=== PATIENT | female | born 1995 | race Caucasian/White ===

== ENCOUNTER 2017-07-11 19:35 | Emergency (ER) | payer SELFPAY ==
[2017-07-11] MEDS ORDERED: 0.9 % SODIUM CHLORIDE 1000ML 1,000 ML IV SCH (19:45)
--- NOTE | 2017-07-11 19:46 | Emergency Department Record ---
History of Present Illness - General Stated Complaint: OD Time Seen by Provider: 07/11/17 19:40 Source: Patient, EMS Mode of Arrival: EMS Limitations: No limitations - History of Present Illness Initial Comments: 21 yo female presents to ED following an overdose of heroin just prior to arrival. Patient was given Narcan 8 mg intranasally prior to arrival, denies complaints at this time. Patient denies pain or injury, and denies health problems at her baseline. Complaint: Accidental overdose Onset/Timin -: Minutes(s) - Peter Coma Scale Eye Response: (4) Open spontaneously Motor Response: (6) Obeys commands Verbal Response: (5) Oriented Peter Total: 15 - Detail How Overdose Was Discovered: Family/friend present at time Context: Accidental Overdose: Wanted to get high Context: Intentional Overdose: Drug/ETOH problems Treatments Prior to Arrival: Narcan - Related Data Home Medications Medication Instructions Recorded Confirmed Last Taken No Home Med [NO HOME MEDS] 07/11/17 07/11/17 Unknown Allergies Allergy/AdvReac Type Severity Reaction Status Date / Time sulfamethoxazole Allergy PT UNSURE Verified 07/11/17 19:48 [From Bactrim] OF REACTION trimethoprim [From Bactrim] Allergy PT UNSURE Verified 07/11/17 19:48 OF REACTION Review of Systems Constitutional: Denies: Chills, Fever, Malaise, Night sweats Eyes: Denies: Eye discharge, Eye pain ENT: Denies: Congestion, Ear pain, Epistaxis Respiratory: Denies: Cough, Dyspnea Cardiovascular: Denies: Chest pain, Dyspnea on exertion Endocrine: Denies: Fatigue, Heat or cold intolerance Gastrointestinal: Denies: Abdominal pain, Nausea, Vomiting Genitourinary: Denies: Incontinence, Retention Musculoskeletal: Denies: Arthralgia, Back pain, Gout, Joint swelling Skin: Denies: Bruising, Change in color Neurological: Denies: Abnormal gait, Confusion, Headache, Seizure Psychiatric: Denies: Anxiety Hematological/Lymphatic: Denies: Anemia, Blood Clots Physical Exam - General General Appearance: Alert, Oriented x3, Cooperative, No acute distress Limitations: No limitations - Head Head exam: Atraumatic, Normocephalic, Normal inspection Head exam detail: negative: Abrasion, Contusion, Kerr's sign, General tenderness, Hematoma, Laceration - Eye Eye exam: Normal appearance. negative: Conjunctival injection, Periorbital swelling, Periorbital tenderness, Scleral icterus - ENT Ear exam: negative: Auricular hematoma, Auricular trauma Nasal Exam: negative: Active bleeding, Discharge, Dried blood, Foreign body Mouth exam: negative: Drooling, Laceration, Tongue elevation - Neck Neck exam: Normal inspection. negative: Meningismus, Tenderness - Respiratory Respiratory exam: Normal lung sounds bilaterally. negative: Rales, Respiratory distress, Rhonchi, Stridor - Cardiovascular Cardiovascular Exam: Regular rate, Normal rhythm, Normal heart sounds - GI/Abdominal GI/Abdominal exam: Soft. negative: Rebound, Rigid, Tenderness - Rectal Rectal exam: Deferred - exam: Deferred - Extremities Extremities exam: Normal inspection. negative: Calf tenderness, Pedal edema, Tenderness - Back Back exam: Denies: CVA tenderness (R), CVA tenderness (L) - Neurological Neurological exam: Alert, Normal gait, Oriented X3 - Psychiatric Psychiatric exam: Normal affect, Normal mood - Skin Skin exam: Normal color. negative: Abrasion Type of lesion: negative: abrasion Course - Reevaluation(s) Reevaluation #1: 07/11/17 20:30 Laboratory studies reviewed, WBC 14.6, CO2 20.9, AG 16.1, and glucose is 285. Patient is resting comfortably at this time, will continue to observe for 3-4 hours following narcan administration. Reevaluation #2: 07/11/17 23:23 Patient ambulated to the bathroom with steady gait, no evidence for recurrence of respiratory depression on multiple examinations. Patient was counseled at length about the risks of heroin use and resulting from overdose. Patient appears stable for discharge at this time. Medical Decision Making - Lab Data Result diagrams: 07/11/17 19:23 07/11/17 19:23 Disposition Disposition: Discharge Clinical Impression: Opiate overdose Qualifiers: Encounter type: initial encounter Injury intent: accidental or unintentional Qualified Code(s): T40.601A - Poisoning by unspecified narcotics, accidental ( unintentional), initial encounter Disposition: Home, Self-Care Condition: (2) Stable Instructions: Narcotic Abuse (ED) Additional Instructions: Return to ED if your symptoms worsen or if you have any concerns. Follow-up with your family doctor in 3-5 days as directed. Please stop using heroin. Forms: Patient Portal Access Time of Disposition: 23:24 Quality - Quality Measures Quality Measures: N/A - Blood Pressure Screening Does Patient Have Any of the Following: No Blood Pressure Classification: Pre-Hypertensive BP Reading Systolic Measurement: 127 Diastolic Measurement: 78 Screening for High Blood Pressure: < Pre-Hypertensive BP, F/U Documented > [ G8950] Pre-Hypertensive Follow-up Interventions: Referral to alternative/primary care provider.
[2017-07-11 19:50] LABS: HEMATOCRIT 38.5 % (35.0-47.0); HEMOGLOBIN 12.7 gm/dl (11.6-16.0); MEAN CELL VOLUME 84.6 fl (81-97); MEAN CORPUSCULAR HEMOGLOBIN 27.9 pg (27-33); MEAN PLATELET VOLUME 9.7 fl (7.4-10.4); PLATELET COUNT 308 K/uL (130-400); RED BLOOD COUNT 4.55 M/uL (3.80-5.40); WHITE BLOOD COUNT W/O DIFF 14.6 K/uL (4.2-12.2)
[2017-07-11 20:01] LABS: ALB/GLOB RATIO 1.3 (1.1-1.8); ALBUMIN 4.1 gm/dL (3.5-5.0); ALKALINE PHOSPHATASE 101 U/L (38-126); ALT/SGPT 59 U/L (9-52); ANION GAP 16.1 (7-16); AST/SGOT 59 U/L (14-36); BILIRUBIN,TOTAL 0.56 mg/dL (0.2-1.3); BLOOD UREA NITROGEN 8 mg/dL (7-17); CARBON DIOXIDE 20.9 mmol/L (22-30); CREATININE 0.9 mg/dL (0.52-1.04); EST GLOMERULAR FILTRATION RATE > 60 ml/min; GLUCOSE,RANDOM 285 mg/dL (70-110); TOTAL PROTEIN 7.3 gm/dL (6.3-8.2)
[2017-07-11 20:57] LABS: AMPHETAMINE SCREEN URINE NOT DETECTED; BARBITURATE SCREEN URINE NOT DETECTED; BENZODIAZEPINE SCREEN URINE DETECTED; COCAINE SCREEN URINE NOT DETECTED; METHADONE SCREEN URINE NOT DETECTED; METHAMPHETAMINE SCREEN NOT DETECTED; OPIATE SCREEN URINE NOT DETECTED; OXYCODONE SCREEN URINE NOT DETECTED; PHENCYCLIDINE SCREEN URINE NOT DETECTED; PROPOXYPHENE SCREEN URINE NOT DETECTED; THC SCREEN URINE NOT DETECTED; TRICYCLIC ANTIDEPRESSANT SCRN NOT DETECTED
== END 2017-07-11 23:48 | disposition home or self-care (01) ==
LOC: ER 19:35
DX: T40.1X1A Poisoning by heroin, accidental (unintentional), initial encounter (principal)
CPT/HCPCS: 80053; 80305; 85027; 99284

== ENCOUNTER 2017-09-11 19:17 | Emergency (ER) | payer BC ==
--- NOTE | 2017-09-11 19:29 | Emergency Department Record ---
History of Present Illness - General Chief Complaint: Overdose Stated Complaint: OVERDOSE Time Seen by Provider: 09/11/17 19:22 Source: Family Mode of Arrival: Carried Limitations: Altered mental status - History of Present Illness Initial Comments: 21 yo female presents with her significant other minimally responsive. He states she just used heroin prior to arrival. He states this was her third time using heroin. No co-ingestions. She is moaning with decreased respiratory effort. No outward signs of trauma. MD Complaint: Accidental overdose -: Minutes(s) - [place] Coma Scale Eye Response: (2) Open to pain Motor Response: (4) Withdraws to pain Verbal Response: (2) Incomprehsible sounds Peter Total: 8 Substance Ingested: Heroin - Detail Intent: Other (Recreational use) Context: Accidental Overdose: Wanted to get high Context: Intentional Overdose: Drug/ETOH problems Treatments Prior to Arrival: None - Related Data Allergies Allergy/AdvReac Type Severity Reaction Status Date / Time sulfamethoxazole Allergy PT UNSURE Verified 09/11/17 19:24 [From Bactrim] OF REACTION trimethoprim [From Bactrim] Allergy PT UNSURE Verified 09/11/17 19:24 OF REACTION Review of Systems ROS unobtainable: Due to mental status Past Medical History - SOCIAL HISTORY Smoking Status: Current every day smoker Drug Use Detail:: Marijuana, Other - RESPIRATORY Hx Respiratory Disorders: No - CARDIOVASCULAR Hx Cardio Disorders: No - NEURO Hx Neuro Disorders: No - GI Hx GI Disorders: No - Hx Genitourinary Disorders: No - ENDOCRINE Hx Endocrine Disorders: No - MUSCULOSKELETAL Hx Musculoskeletal Disorders: No - PSYCH Hx Psych Problems: No - HEMATOLOGY/ONCOLOGY Hx Hematology/Oncology Disorders: No Family Medical History Hx Heart Disease: Grandparents Physical Exam - General General Appearance: Severe distress, Other (Moans, eyes do open and close, pale , shallow respiratory effort, obvious small pupils) Limitations: Altered mental status - Head Head exam: Atraumatic, Normocephalic, Normal inspection Head exam detail: negative: Abrasion, Contusion, Kerr's sign, General tenderness, Hematoma, Laceration - Eye Eye exam: negative: PERRL (pin point), EOMI (roving) Pupils: Miosis. negative: Irregular, Unequal - ENT ENT exam: Normal exam, Mucous membranes moist Ear exam: Normal external inspection Nasal Exam: Normal inspection Mouth exam: Normal external inspection Teeth exam: Normal inspection - Neck Neck exam: Normal inspection, Full ROM. negative: Tenderness - Respiratory Respiratory exam: Respiratory distress (hypoventilating) - Cardiovascular Cardiovascular Exam: Regular rate, Normal rhythm, Normal heart sounds Peripheral Pulses: 2+: Radial (R), Radial (L) - GI/Abdominal GI/Abdominal exam: Soft. negative: Tenderness - Rectal Rectal exam: Deferred - exam: Deferred - Extremities Extremities exam: Normal inspection - Back Back exam: Reports: Normal inspection - Neurological Neurological exam: Abnormal gait, Altered - Psychiatric Psychiatric exam: Other (very somnolent) - Skin Skin exam: Dry, Pallor. negative: Normal color, Rash Course - Reevaluation(s) Reevaluation #1: The patient was given 2mg of narcan for her overdose She responded well with return of alertness and breathing No initial withdrawal symptoms after Narcan given She states she is a daily user She is fully oriented without confusion 09/11/17 19:30 09/11/17 20:06 The patient continues to due well Alert and at baseline 09/11/17 20:38 Alert at baseline, no complaints No confusion, no pain, no nausea or vomiting We discussed the near circumstances of krzysztof's drug use and the dangers of quick as a result of her usage She understands our concerns about her continued drug use She will be offered resources to deal with her drug abuse 09/11/17 21:29 The UDS was positive for opiods, benzo's and marijuana She remains asymptomatic 09/11/17 22:22 Resting comfortably. Alert. No symptoms at this time States she is remorseful about her use of heroin and requests numbers to call for outpatient follow up 09/11/17 22:59 Remains asymptomatic Ready for DC Medical Decision Making - Lab Data Result diagrams: 09/11/17 19:25 09/11/17 19:25 Disposition Disposition: Discharge Clinical Impression: Opiate overdose Qualifiers: Encounter type: initial encounter Injury intent: accidental or unintentional Qualified Code(s): T40.601A - Poisoning by unspecified narcotics, accidental ( unintentional), initial encounter Disposition: Home, Self-Care Condition: (1) Good Instructions: Narcotic Abuse (ED), Opioid Overdose (ED) Additional Instructions: Avoid heroin Return if you have any health concerns or symptoms Call the numbers provided for follow up for outpatient narcotic abuse help Referrals: [facility] Mental[facility]Behavior[facility] [Provider Group] Forms: Patient Portal Access Time of Disposition: 22:59 Quality - Quality Measures Quality Measures: N/A - Blood Pressure Screening Does Patient Have Any of the Following: No Blood Pressure Classification: Hypertensive Reading Systolic Measurement: 155 Diastolic Measurement: 73 Screening for High Blood Pressure: < Pre-Hypertensive BP, F/U Documented > [ G8950] Pre-Hypertensive Follow-up Interventions: Referral to alternative/primary care provider.
[2017-09-11] MEDS ORDERED: WATER IV SCH ×2 (19:30)
[2017-09-11] MEDS ORDERED: NALOXONE HCL IV SCH ×2 (19:30)
[2017-09-11] MEDS ORDERED: DEXTROSE 5% IV SCH ×2 (19:30)
[2017-09-11 19:34] LABS: HEMATOCRIT 39.1 % (35.0-47.0); HEMOGLOBIN 12.7 gm/dl (11.6-16.0); MEAN CORPUSCULAR HEMOGLOBIN 27.6 pg (27-33); MEAN CORPUSCULAR HGB CONC 32.5 g/dl (32-36); MEAN PLATELET VOLUME 8.8 fl (7.4-10.4); PLATELET COUNT 456 K/uL (130-400); RED CELL DISTRIBUTION WIDTH 14.9 % (11.5-14.5); WHITE BLOOD COUNT W/O DIFF 14.3 K/uL (4.2-12.2)
[2017-09-11] MEDS ORDERED: NALOXONE HCL 1 MG/ML SYR IVP ONE (19:40)
[2017-09-11 19:48] LABS: BLOOD UREA NITROGEN 7 mg/dL (6-20); CREATININE 0.6 mg/dL (0.5-0.9); EST GLOMERULAR FILTRATION RATE > 60 mL/min; GLUCOSE,RANDOM 186 mg/dL (74-109)
[2017-09-11 19:50] LABS: ACETAMINOPHEN < 5.0 ug/mL (10.0-30.0); SALICYLATE < 0.3 mg/dL (2.8-20)
[2017-09-11 19:51] LABS: ALCOHOL < 0.010 g/dL (0-0.010)
[2017-09-11 19:52] LABS: PLATELET ESTIMATE INCREASED (NORMAL)
[2017-09-11] MEDS ORDERED: 0.9 % SODIUM CHLORIDE 1000ML 1,000 ML IV ONE (20:37)
[2017-09-11] MEDS ORDERED: IBUPROFEN 600 MG TABLET PO ONE (20:40)
[2017-09-11 20:58] LABS: URINE APPEARANCE CLEAR; URINE BILIRUBIN NEGATIVE (NEGATIVE); URINE BLOOD MODERATE (NEGATIVE); URINE COLOR YELLOW; URINE GLUCOSE (UA) NEGATIVE (NEGATIVE); URINE KETONE NEGATIVE (NEGATIVE); URINE LEUKOCYTE ESTERASE SMALL (NEGATIVE); URINE NITRITE NEGATIVE (NEGATIVE); URINE PROTEIN NEGATIVE (NEGATIVE); URINE UROBILINOGEN 0.2 E.U./dL (0.20 - 1.00)
[2017-09-11 21:02] LABS: BARBITURATE SCREEN URINE NOT DETECTED; BENZODIAZEPINE SCREEN URINE DETECTED; METHADONE SCREEN URINE DETECTED; THC SCREEN URINE DETECTED; TRICYCLIC ANTIDEPRESSANT SCRN NOT DETECTED
[2017-09-11 21:03] LABS: AMPHETAMINE SCREEN URINE NOT DETECTED; COCAINE SCREEN URINE NOT DETECTED; METHAMPHETAMINE SCREEN NOT DETECTED; OPIATE SCREEN URINE DETECTED; OXYCODONE SCREEN URINE DETECTED; PHENCYCLIDINE SCREEN URINE NOT DETECTED; PROPOXYPHENE SCREEN URINE NOT DETECTED
[2017-09-11 21:06] LABS: URINE BACTERIA 1+; URINE MUCUS MODERATE
== END 2017-09-11 23:10 | disposition home or self-care (01) ==
LOC: ER 19:17
DX: T40.1X1A Poisoning by heroin, accidental (unintentional), initial encounter (principal)
CPT/HCPCS: 99284 ×2; 96374; 96361; 80048; 81001; 84703; 80305; 85027; G0480 ×3; 80320; 80329; J2310; J7030

== ENCOUNTER 2017-10-27 21:10 | Emergency (ER) | payer BC ==
--- NOTE | 2017-10-27 21:27 | Emergency Department Record ---
History of Present Illness - General Chief Complaint: Overdose Stated Complaint: OVERDOSE Time Seen by Provider: 10/27/17 21:23 Source: Family Mode of Arrival: Wheelchair Limitations: Altered mental status - History of Present Illness Initial Comments: 21 yo female presents with overdose of heroin. She was brought in by the significant other. She has been known use and overdose in the past. MD Complaint: Accidental overdose Onset/Timin -: Minutes(s) - Peter Coma Scale Eye Response: (1) No response Motor Response: (4) Withdraws to pain Verbal Response: (1) No verbal response Peter Total: 6 - Detail Intent: Other (accidental) Context: Accidental Overdose: Wanted to get high, Other Context: Intentional Overdose: Drug/ETOH problems Treatments Prior to Arrival: None - Related Data Allergies Allergy/AdvReac Type Severity Reaction Status Date / Time sulfamethoxazole Allergy PT UNSURE Verified 09/11/17 19:24 [From Bactrim] OF REACTION trimethoprim [From Bactrim] Allergy PT UNSURE Verified 09/11/17 19:24 OF REACTION Travel Screening - Travel/Exposure Within Last 30 Days Have you traveled within the last 30 days?: No - Travel/Exposure Within Last Year Have you traveled outside the [place] in the last year?: No - Additonal Travel Details Have you been exposed to anyone with a communicable illness?: No - Travel Symptoms Symptom Screening: None Review of Systems ROS unobtainable: Due to mental status Past Medical History - SOCIAL HISTORY Smoking Status: Current every day smoker Drug Use: Heavy Drug Use Detail:: Opiates - RESPIRATORY Hx Respiratory Disorders: No - CARDIOVASCULAR Hx Cardio Disorders: No - NEURO Hx Neuro Disorders: No - GI Hx GI Disorders: No - Hx Genitourinary Disorders: No - ENDOCRINE Hx Endocrine Disorders: No - MUSCULOSKELETAL Hx Musculoskeletal Disorders: No - PSYCH Hx Psych Problems: No - HEMATOLOGY/ONCOLOGY Hx Hematology/Oncology Disorders: No Family Medical History Any Significant Family History?: Yes Hx Heart Disease: Grandparents Physical Exam - General General Appearance: Severe distress, Other (Minimal respirations, non verbal, pale) Limitations: Altered mental status - Head Head exam: Atraumatic, Normocephalic, Normal inspection - Eye Eye exam: PERRL (pinpint). negative: Normal appearance, Conjunctival injection Pupils: Normal accommodation, Miosis - ENT ENT exam: Normal exam, Mucous membranes moist Ear exam: Normal external inspection Nasal Exam: Normal inspection Mouth exam: Normal external inspection - Neck Neck exam: Normal inspection, Full ROM. negative: Tenderness - Respiratory Respiratory exam: Decreased breath sounds, Other (minimal respiratory effort). negative: Normal lung sounds bilaterally - Cardiovascular Cardiovascular Exam: Regular rate, Normal rhythm, Normal heart sounds - GI/Abdominal GI/Abdominal exam: Soft. negative: Tenderness - Rectal Rectal exam: Deferred - exam: Deferred - Extremities Extremities exam: Normal inspection, Full ROM, Normal capillary refill. negative: Tenderness - Neurological Neurological exam: Altered (non responsive). negative: Alert - Psychiatric Psychiatric exam: negative: Agitated, Anxious - Skin Skin exam: Cyanosis Course Vital Signs 10/27/17 21:15 Temperature 98.2 F Pulse Rate 136 H Respiratory 30 H Rate Blood Pressure 131/98 Pulse Ox 100 - Reevaluation(s) Reevaluation #1: 10/27/17 21:26 Right IJ iv placed. 2mg Narcan given 10/27/17 21:58 The patient continues to do well She is alert x's 4 10/27/17 22:11 The room was checked. The patient and her significant other left the ED with IV without notification of the staff Law enforcement was immediately contacted due to the IV still intact. She will be asked to return for removal if found. Medical Decision Making - Lab Data Result diagrams: 10/27/17 21:35 10/27/17 21:35 Disposition Disposition: Other Clinical Impression: Heroin abuse Overdose Qualifiers: Encounter type: initial encounter Injury intent: accidental or unintentional Qualified Code(s): T50.901A - Poisoning by unspecified drugs, medicaments and biological substances, accidental (unintentional), initial encounter Disposition: Against Medical Advice Condition: (2) Stable Forms: Patient Portal Access Time of Disposition: 22:12 Quality - Quality Measures Quality Measures: N/A - Blood Pressure Screening Does Patient Have Any of the Following: No Blood Pressure Classification: Hypertensive Reading Systolic Measurement: 131 Diastolic Measurement: 98 Screening for High Blood Pressure: < Pre-Hypertensive BP, F/U Documented > [ G8950] Pre-Hypertensive Follow-up Interventions: Referral to alternative/primary care provider.
[2017-10-27] MEDS ORDERED: NALOXONE HCL 1 MG/ML SYR IV ONE (21:37)
[2017-10-27] MEDS ORDERED: NALOXONE HCL 1 MG/ML SYR IVP ONE (21:37)
[2017-10-27 21:41] LABS: BASO % 0.3 % (0-6); EOS % 0.3 % (0-6); GRAN % 45.8 % (47-80); HEMATOCRIT 43.2 % (35.0-47.0); HEMOGLOBIN 14.2 gm/dl (11.6-16.0); LYMPH % 43.4 % (16-45); MEAN CELL VOLUME 89.8 fl (81-97); MEAN CORPUSCULAR HEMOGLOBIN 29.5 pg (27-33); MEAN CORPUSCULAR HGB CONC 32.9 g/dl (32-36); MEAN PLATELET VOLUME 9.6 fl (7.4-10.4); MONO % 10.2 % (0-9); PLATELET COUNT 242 K/uL (130-400); RED BLOOD COUNT 4.81 M/uL (3.80-5.40); RED CELL DISTRIBUTION WIDTH 15.7 % (11.5-14.5); WHITE BLOOD COUNT W/O DIFF 10.7 K/uL (4.2-12.2)
[2017-10-27 21:54] LABS: BLOOD UREA NITROGEN 7 mg/dL (6-20); CREATININE 0.6 mg/dL (0.5-0.9); EST GLOMERULAR FILTRATION RATE > 60 mL/min
[2017-10-27 21:57] LABS: GLUCOSE,RANDOM 159 mg/dL (74-109)
[2017-10-27] MEDS ORDERED: 0.9 % SODIUM CHLORIDE 1,000 ML BAG IV ONE (21:58)
== END 2017-10-27 22:13 | disposition left against medical advice (07) ==
LOC: ER 21:10
DX: T40.1X1A Poisoning by heroin, accidental (unintentional), initial encounter (principal); F17.210 Nicotine dependence, cigarettes, uncomplicated; Y92.008 Other place in unspecified non-institutional (private) residence as the place of occurrence of the external cause
CPT/HCPCS: 80048; 85025; 96361; 96374; 99284; J2310; J7030